=== PATIENT | female | born 1965 | race Caucasian/White ===

== ENCOUNTER → 2016-10-07 | Outpatient (REF) ==
[~2016-10-07] MED LIST: ALEVE 220MG220 MG PO; GLUCOSAMINE & C1 CA1 PO; NATURE'S BLEND160 MG PO; NORCO 325 MG-51 TAB PO; POTASSIUM PO; PRILOSEC 20MG20 MG PO; SYNTHROID0.075 MG/T PO; VITAMIN D32000 I1 PO; WELLBUTRIN XL300 M1 PO; ZYRTEC 10MG10 MG PO
== END ==
LOC: ZLAB.WCH 23:30
DX: Z01.89 Encounter for other specified special examinations (principal)

== ENCOUNTER → 2017-04-27 | Outpatient (REF) | LOC: ZLAB.WCH 18:11 | DX: Z01.89 Encounter for other specified special examinations (principal) ==

== ENCOUNTER → 2018-04-11 | Outpatient (REF) ==
[2018-04-11 17:58] LABS: THYROID STIMULATING HORMONE 1.88 uIU/mL (0.465-4.680)
== END ==
LOC: ZLAB.WCH 16:12
PROVIDERS: Internal Medicine
DX: Z01.89 Encounter for other specified special examinations (principal)

== ENCOUNTER 2024-03-27 04:54 | Inpatient (IN) | payer BC ==
[2024-03-27] VITALS (14 sets, daily range): BP systolic 104–123; BP diastolic 57–85; PULSE 64–87; TEMP 97.6–98.8
[~2024-03-27] VITALS: Ht 165.1 cm; Wt 124.1 kg
[~2024-03-27 04:54] MED LIST changes: +NATURAL POTASS595 MG PO; -POTASSIUM PO; -SYNTHROID0.075 MG/T PO; +SYNTHROID0.1 MG/TAB PO
[2024-03-27] MEDS ORDERED: VITAMIN D31000 IU PO (08:47)
[2024-03-27] MEDS ORDERED: EFFEXOR XR75 MG/CAP PO (08:50)
[2024-03-27] MEDS ORDERED: FERROUS SU325 MG/TAB PO (08:52)
[2024-03-27] MEDS ORDERED: ZESTORETIC 25 M1 TAB PO (08:53)
[2024-03-27] MEDS ORDERED: TYLENOL 500MG500 MG PO (09:02)
[2024-03-27] MEDS ORDERED: MULTIPLE VITAMI1 TA5 PO (09:06)
--- NOTE | 2024-03-27 10:09 | NUR ---
Patient arrived to room 314 at approximately 0745, via EMS. Pt a/o x4. O2 2L/NC. Denies SOA. Admission intake, assessment and med rec completed. Allergies and Pharmacy verified. Gama at bedside. Denies pain or needs.
[2024-03-27 11:27] LABS: ALBUMIN 3.5 g/dL (3.4-4.8); BILIRUBIN,TOTAL 2.4 mg/dL (0.2-1.2); CALCIUM 8.9 mg/dL (8.4-10.2); CREATININE, serum 0.86 mg/dL (0.57-1.11); POTASSIUM 4.1 mEq/L (3.5-4.5); TOTAL PROTEIN 6.3 g/dl (6.2-8.1)
[2024-03-27] MEDS ORDERED: Ondansetron 4 MG/2 ML VIAL IV PRN ×2 (12:45→17:30)
[2024-03-27] MEDS ORDERED: Polyethylene Glycol 3350 17 GM PDS PO PRN (12:45)
[2024-03-27] MEDS ORDERED: Docusate Sodium 100 MG CAP PO PRN (12:45)
[2024-03-27] MEDS ORDERED: Acetaminophen 325 MG TAB PO PRN (12:45)
[2024-03-27] MEDS ORDERED: Morphine 4 MG/ML VIAL IV PRN (13:00)
[2024-03-27] MEDS ORDERED: LR 1,000 ML IV SCH ×2 (13:00→15:00)
[2024-03-27] MEDS ORDERED: Indocyanine Green 6.25 MG in Water For Injection,Sterile 1.25 ML IV SCH (15:00)
[2024-03-27] MEDS ORDERED: fentaNYL 50 MCG/ML 5 ML VIAL ONE (15:31)
[2024-03-27] MEDS ORDERED: Rocuronium 50 MG/5 ML Multi-Dose VIAL ONE (15:32)
[2024-03-27] MEDS ORDERED: dexAMETHasone 10 MG/ML VIAL ONE (15:34)
[2024-03-27] MEDS ORDERED: Ketorolac 30 MG/ML VIAL ONE (15:34)
[2024-03-27] MEDS ORDERED: Ondansetron 4 MG/2 ML VIAL ONE (15:34)
[2024-03-27] MEDS ORDERED: Glycopyrrolate 0.2 MG/ML 1 ML VIAL ONE (15:34)
--- NOTE | 2024-03-27 16:28 | NUR ---
Patient to the OR, via bed, for lap karoline.
[2024-03-27] MEDS ORDERED: ePHEDrine 50 MG/ML VIAL ONE (17:16)
[2024-03-27] MEDS ORDERED: droPERidol 2.5 MG/ML 2 ML VIAL IV PRN (17:30)
[2024-03-27] MEDS ORDERED: HYDROmorphone 1 MG/1 ML SYRINGE [PACU/SDC ONLY] IV PRN (17:30)
[2024-03-27] MEDS ORDERED: fentaNYL 50 MCG/ML 1 ML SYRINGE/VIAL [PACU/SDC ONLY] IV PRN (17:30)
[2024-03-27] MEDS ORDERED: hydrALAZINE 20 MG/ML 1 ML VIAL IV PRN (17:30)
--- NOTE | 2024-03-27 19:20 | NUR ---
Back from recovery room at this time, VSS, o2 sats 89-90% on RA, did put on 2 L/nc at this time, awake/oriented x4, denies pain/SOB, Abd soft, hypoBS, Bandaids x5 dry and intact. Has LR at 75cc/hr, Tele on, SCD,s on. Taking ice chips-no nausea.
[2024-03-28] VITALS (11 sets, daily range): BP systolic 97–120; BP diastolic 64–81; PULSE 64–84; TEMP 97.6–98.6
--- NOTE | 2024-03-28 05:30 | NUR ---
Sleeping well tonight-- denies pain, did have very scant bleeding from one of the abd bandaid sites- cleaned and bandaid applied,, IV fluids of LR at 75cc/hr, Is taking po without nausea, did have some jello/pudding also. Talked about deep breathing and coughing to help expand lungs-- Is on 2L/nc
[2024-03-28 07:06] LABS: BASO % 0.1 % (0.0-2.0); GRAN % 82.4 % (42.2-75.2); HEMOGLOBIN 11.9 g/dl (12.5-16.0); LYMPH # 0.9 K/mm3 (1.2-3.4); LYMPH % 11.1 % (20.0-51.0); MEAN CELL VOLUME 93 fl (80.0-100.0); MEAN CORPUSCULAR HEMOGLOBIN 30 pg (27-31); MEAN CORPUSCULAR HGB CONC 33 g/dl (33.0-37.0); MEAN PLATELET VOLUME 10.1 fl (7.4-10.4); MONO # 0.5 K/mm3 (0.1-0.6); PLATELET COUNT 221 K/mm3 (130-400); RED BLOOD COUNT 3.92 M/mm3 (4.10-5.30); REDCELL DISTRIBUTION WIDTH-CV 13.9 % (11.5-14.5)
[2024-03-28 07:07] LABS: HEMATOCRIT 36.4 % (37.0-47.0)
[2024-03-28 07:40] LABS: ALBUMIN 3.2 g/dL (3.4-4.8); BILIRUBIN,TOTAL 2.7 mg/dL (0.2-1.2); CALCIUM 8.7 mg/dL (8.4-10.2); CREATININE, serum 1.03 mg/dL (0.57-1.11); POTASSIUM 4.2 mEq/L (3.5-4.5); TOTAL PROTEIN 6.5 g/dl (6.2-8.1)
[2024-03-28] MEDS ORDERED: NORCO 325 MG-51 TAB PO (07:52)
--- NOTE | 2024-03-28 08:34 | NUR ---
overhead line worker met with pt to discuss discharge planning. She reports to live with her , Anselmo [phone] in [place]. She sees Dr. Geronimo for PCP needs and obtains medications from [facility] with no difficulties. Pt verified her insurance as [id number]. She is independent with ADLS and uses no DME. She does not have a DPOA-HC, but is agreeable to her being NOK. She requested her son, Jerry [phone] be added as a contact. She expressed no further concerns for . Discharge Plan: home
--- NOTE | 2024-03-28 10:15 | NUR ---
Patient A&Ox4, laying down in bed. Pt ambulated independently to use the restroom. Pt denies any pain at the moment, will continue to monitor for pain. Patient is using SCDs for VTE prophylaxis. Pt has a Right arm 20G IV with LR running at 75mL/h. Pt educated to call nurse if any new issues arise. Pt verbalized understanding. Pt sitting in chair, awaiting breakfast, call lee within reach.
--- NOTE | 2024-03-28 12:04 | NUR ---
Patient reports new 8/10 sharp, epigastric pain, mild nausea. Pt given PRN morphine 2mg IV push. Pt tolerated medication well. Liver enzymes noted to be elevated. Call made to Dr. Francois for change in patient status. Messaged recieved and no new orders recieved at this time.
--- NOTE | 2024-03-28 13:09 | NUR ---
D: Road Machine Operator stopped by room on rounds. A: Pt was resting and content with in the room. Pt has no needs right now. P: Road Machine Operator informed pt that if she needed anything from the newspaper vendor area to let her nurse know. Road Machine Operator will follow up as needed.
--- NOTE | 2024-03-28 19:05 | NUR ---
Patient is A&Ox4. Patient is ambulating independently from bathroom to bed. Pt reports 0/10 pain at the moment and c/o mild nausea but refused anti-nausea medication at this time. Pt has right arm 20G IV infusing LR at 75mL/h. Pt instructed to call nurse if any other new issues arise. Pt verbalized understanding and call lee is within reach. 1530- Dr. Francois notifed of sudden increase in pain, nausea and liver enzymes are elevated. MD aware and pt discharge on hold for now.
[2024-03-29] VITALS (8 sets, daily range): BP systolic 109–151; BP diastolic 73–83; PULSE 69–75; TEMP 98.2–98.7
--- NOTE | 2024-03-29 00:20 | NUR ---
CALL PLACED TO JANICE AT PHARMACY. DAYSHIFT PLACED ABX ON STANDBY-ABX NOT RESTARTED UNTIL 19:00 PM. ABX RETIMED.
--- NOTE | 2024-03-29 03:00 | NUR ---
CALLED TO PATIENT ROOM. EMILIA NOTED BLOOD IN TOILET AFTER URINATING AND A SMALL 7VND3DR SPOT OF BRIGHT RED BLOOD ON UNDERWEAR. VISUAL EXAM OF ANUS SHOWED SMALL BLEEDING ABRASION. BARRIER CREAM AND PERIPAD PLACED TO OBSERVED FOR ADDITIONAL BLEEDING. NO ACTIVE BLEEDING NOTED NOW. VS ARE WNL.
[2024-03-29 06:20] LABS: BASO # 0.1 K/mm3 (0.0-0.2); EOS # 0.2 K/mm3 (0.0-0.7); EOS % 2.7 % (0.0-4.0); GRAN # 3.7 K/mm3 (1.4-6.5); GRAN % 51.1 % (42.2-75.2); HEMOGLOBIN 11.7 g/dl (12.5-16.0); LYMPH # 2.4 K/mm3 (1.2-3.4); MEAN CELL VOLUME 94 fl (80.0-100.0); MEAN CORPUSCULAR HEMOGLOBIN 31 pg (27-31); MEAN CORPUSCULAR HGB CONC 33 g/dl (33.0-37.0); MEAN PLATELET VOLUME 10.4 fl (7.4-10.4); MONO # 0.8 K/mm3 (0.1-0.6); MONO % 10.6 % (1.7-9.3); PLATELET COUNT 186 K/mm3 (130-400); RED BLOOD COUNT 3.77 M/mm3 (4.10-5.30); REDCELL DISTRIBUTION WIDTH-CV 14.4 % (11.5-14.5)
[2024-03-29 06:22] LABS: HEMATOCRIT 35.4 % (37.0-47.0)
[2024-03-29 06:54] LABS: CALCIUM 8.7 mg/dL (8.4-10.2); CREATININE, serum 0.94 mg/dL (0.57-1.11); POTASSIUM 3.7 mEq/L (3.5-4.5); TOTAL PROTEIN 6.1 g/dl (6.2-8.1)
[2024-03-29] MEDS ORDERED: Omeprazole 20 MG **** subs to Pantoprazole 40 MG PO SCH (07:00)
--- NOTE | 2024-03-29 08:31 | NUR ---
PT RESTING IN BED WITH EYES OPEN. SP02 3L ON NC. INT RAC NO REDNESS NOTED. SCDS ON BILATERAL LOWER EXTREMITIES. PAIN RATE 8, CHARGE NURSE NOTIFIED OF PAIN. NO OTHER CONCERNS AT THIS TIME.
--- NOTE | 2024-03-29 13:48 | NUR ---
PT RESTING IN BED WITH FAMILY AT BED SIDE. PT A&O X4. PT HAS NO CONCERNS AT THIS TIME. CALL LIGHT AND PERSONAL BELONGINGS WITHIN REACH. REPORTED OFF TO CHARGE NURSE.
--- NOTE | 2024-03-29 15:26 | NUR ---
PATIENT WAS TRANSPORTED VIA EMS TO [facility] AT THIS TIME. FAMILY ACCOMPANIED PATIENT OUT OF UNIT.
--- NOTE | 2024-03-29 15:29 | NUR ---
CALLED [facility] UNIT TO GIVE REPORT TO PATIENT NURSE BUT WAS NOT AVAILABLE. LEFT A CALL BACK NUMBER TO CALL FOR REPORT. THIS NURSE WILL ATTEMPT TO CALL AT ANOTHER TIME.
--- NOTE | 2024-03-29 16:09 | NUR ---
REPORT GIVEN TO NURSE MCKEON AT [facility] AT THIS TIME.
== END 2024-03-29 15:26 | disposition short-term general hospital (02) | DRG 418 ==
LOC: SURG 04:54 → MEDICAL 08:05
PROVIDERS: Surgery; ADMIT Hospitalist
PROC: 0FT44ZZ Resection of Gallbladder, Percutaneous Endoscopic Approach (ICD-10-PCS; principal; 2024-03-27 16:15)
DX: K80.00 Calculus of gallbladder with acute cholecystitis without obstruction (principal); Z68.41 Body mass index [BMI] 40.0-44.9, adult; M19.90 Unspecified osteoarthritis, unspecified site; E80.6 Other disorders of bilirubin metabolism; E03.9 Hypothyroidism, unspecified; F32.A Depression, unspecified; K21.9 Gastro-esophageal reflux disease without esophagitis; R07.9 Chest pain, unspecified; E66.9 Obesity, unspecified; E78.5 Hyperlipidemia, unspecified; Z79.899 Other long term (current) drug therapy; Z82.49 Family history of ischemic heart disease and other diseases of the circulatory system; Z80.8 Family history of malignant neoplasm of other organs or systems; Z88.2 Allergy status to sulfonamides; Z85.3 Personal history of malignant neoplasm of breast; Z88.1 Allergy status to other antibiotic agents
CPT/HCPCS: J0690; J1100; J1885; J2270; J2405; J2543; J2704; J3010; J7120